=== PATIENT | male | born 1980 | race Two or more races ===

== ENCOUNTER 2017-01-15 13:37 | Emergency (ER) | payer OTHER ==
[2017-01-15] MEDS ORDERED: IBUPROFEN 200 MG TAB PO ONE (13:49)
[2017-01-15 13:50] VITALS: BP 132/78; PULSE 84; RESP 18; TEMP 97.7; O2SAT 97
[2017-01-15] MEDS ORDERED: IBUPROFEN 600 MG TAB PO ONE (14:14)
--- NOTE | 2017-01-15 14:16 | EDPHY ---
H & P Time Seen by Provider: 01/15/17 14:15 HPI/ROS: Chief complaint. Wrist injury HPI. 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 It is repetitive motion any has pain in his left wrist. He says this all through the wrist and not particularly 1 side. No fall or trauma. No previous history of wrist injury or broken bone. No other complaints. He is right handed. Right wrist is normal ROS Constitutional. no fever/chills, no weakness Eyes. no problems with vision ENT. no sore throat, no nasal drainage Cardiovascular. no chest pain Respiratory. no shortness of breath, no cough Abdominal. no abdominal pain, no nausea/vomiting, no diarrhea . no problems urinating MS. Left wrist pain Skin. no rash Lymph. no swollen glands Neuro. no headache, no dizziness, no difficulty walking or with speech Past Medical/Surgical History: Hypertension Social History: , daily smoker, no alcohol Smoking Status: Current every day smoker Physical Exam: General Appearance: Alert well-developed male mild distress vital signs stable Eyes: Pupils equal and round no pallor or injection. ENT, Mouth: Mucous membranes are moist. Respiratory: There are no retractions, lungs are clear to auscultation. Cardiovascular: Regular rate and rhythm. Gastrointestinal: Abdomen is soft and nontender, no masses, bowel sounds normal. Neurological: Awake and alert, sensory and motor exams grossly normal. Skin: Warm and dry, no rashes. Musculoskeletal: Neck is supple nontender. Extremities left wrist diffusely and mildly swollen and tender. No focal areas of tenderness. No deformity. Distal motor vascular sensitivity to be intact Psychiatric: Patient is oriented X 3, there is no agitation. Constitutional: Initial Vital Signs Temperature (C) 36.5 C 01/15/17 13:48 Heart Rate 84 01/15/17 13:48 Respiratory Rate 18 01/15/17 13:48 Blood Pressure 132/78 H 01/15/17 13:48 O2 Sat (%) 97 01/15/17 13:48 O2 Delivery Mode Room Air Allergies/Adverse Reactions: No Known Allergies Allergy (Unverified 01/15/17 13:47) Home Medications: Medication Instructions Recorded Htn Med 01/15/17 Medical Decision Making - Diagnostics Imaging Results: Imaging Impressions Wrist X-Ray 05/17/17 13:49 Impression: Nothing acute identified. X-ray left wrist interpreted by me is normal Procedures: Ibuprofen orally Patient is placed in a Velcro wrist splint. Post splint application re- evaluated by me shows good anatomic position and distal motor vascular sensitivity to be intact ED Course/Re-evaluation: Patient and I discussed imaging study results, treatment plan, criteria for return importance of follow-up and further evaluation. He expresses understanding and agreement Differential Diagnosis: I considered fracture, dislocation, sprain - Data Points Medications Given: Discontinued Medications Ibuprofen (Motrin) 600 mg PO EDNOW ONE Stop: 01/15/17 13:50 Last Admin: 01/15/17 14:16 Dose: 600 mg Departure - Departure Disposition: Home, Routine, Self-Care Clinical Impression: Left wrist sprain Qualifiers: Encounter type: initial encounter Qualified Code(s): S63.502A - Unspecified sprain of left wrist, initial encounter Condition: Good Instructions: Wrist Sprain (ED) Additional Instructions: Splint on for 1 week. Ice to sore area of wrist next 24-48 hours. Ibuprofen 600 mg every 6 hours for discomfort. Return for worsening symptoms. Follow up with workman's Comp for continued symptoms after 1 week Referrals: NONE *PRIMARY CARE P,. [Primary Care Provider] - As per Instructions Stand Alone Forms: Work Comp Follow Up, Work Excuse
== END 2017-01-15 14:50 | disposition home or self-care (01) ==
LOC: CED 13:37
DX: S63.502A Unspecified sprain of left wrist, initial encounter (principal); F17.200 Nicotine dependence, unspecified, uncomplicated; X50.0XXA Overexertion from strenuous movement or load, initial encounter; Y92.69 Other specified industrial and construction area as the place of occurrence of the external cause; Y99.0 Civilian activity done for income or pay; Y93.89 Activity, other specified
CPT/HCPCS: 73110-PO; L3908